=== PATIENT | female | born 1985 | race American Indian/Alaskan Native ===

== ENCOUNTER 2021-11-27 17:25 | Outpatient (CLI) | payer MEDICAID ==
[2021-11-27] MEDS ORDERED: BETAMET ACET/BETAMET NA PH 6 MG/ML INJ 5 ML MDV IM ONE (17:55)
[2021-11-27 18:45] VITALS: BP 122/68
== END 2021-11-27 19:02 | disposition home or self-care (01) ==
LOC: TRG 17:25 → LD 17:28 → TRG 19:02
PROVIDERS: ATTEND Obstetrics & Gynecology
DX: O09.522 Supervision of elderly multigravida, second trimester (principal); Z3A.25 25 weeks gestation of pregnancy
CPT/HCPCS: 59025; 96372; J0702

== ENCOUNTER 2021-11-28 17:17 | Outpatient (CLI) | payer MEDICAID ==
[2021-11-28] MEDS ORDERED: BETAMET ACET/BETAMET NA PH 6 MG/ML INJ 5 ML MDV IM ONE (19:41)
[2021-11-28 19:58] VITALS: BP 120/73
== END 2021-11-28 20:07 | disposition home or self-care (01) ==
LOC: TRG 17:17 → APU 19:29 → TRG 20:07
PROVIDERS: ATTEND Obstetrics & Gynecology
DX: O09.522 Supervision of elderly multigravida, second trimester (principal); Z3A.25 25 weeks gestation of pregnancy
CPT/HCPCS: 96372; J0702

== ENCOUNTER 2022-01-26 17:42 | Outpatient (CLI) | payer MEDICAID ==
[2022-01-26] MEDS ORDERED: LACTATED RINGERS 500 ML IV ONE (18:32)
[2022-01-26] MEDS ORDERED: ACETAMINOPHEN 325 MG TAB PO ONE (18:33)
[2022-01-26 18:55] LABS: Basophils % (Auto) 0.2 % (0.0-1.8); Eosinophils # (Auto) 0.1 K/mm3 (0.0-0.4); Eosinophils % (Auto) 1.9 % (0.0-4.3); Hematocrit 35.8 % (30.3-42.9); Hemoglobin 11.8 gm/dl (10.1-14.3); Lymphocytes # (Auto) 0.4 K/mm3 (1.2-5.4); Lymphocytes % (Auto) 5.1 % (13.4-35.0); Mean Corpuscular HGB Conc 33 % (30-34); Mean Corpuscular Volume 82 fl (79-97); Monocytes # (Auto) 0.6 K/mm3 (0.0-0.8); Monocytes % (Auto) 8.6 % (0.0-7.3); Platelet Count 202 K/mm3 (140-440); Red Blood Count 4.38 M/mm3 (3.65-5.03); Red Cell Distribution Width 13.7 % (13.2-15.2)
[2022-01-26 19:14] LABS: Bilirubin,Urine NEG (Negative); Blood,Urine NEG (Negative); Color,Urine Yellow (Yellow); Protein,Urine <15 mg/dL mg/dL (Negative); Urobilinogen,Urine < 2.0 mg/dL (<2.0)
[2022-01-26 19:23] LABS: Amphetamine Screen,Urine Negative; Benzodiazepines Screen,Urine Negative; Cannabinoid Screen,Urine Negative; Cocaine Screen,Urine Negative; Methadone Screen,Urine Negative; Opiate Screen,Urine Negative
[2022-01-26 19:24] LABS: Alanine Aminotransferase 15 units/L (7-56); Albumin 3.2 g/dL (3.9-5); Bacteria,Urine 1+ /HPF (Negative); Blood Urea Nitrogen 5 mg/dL (7-17); Calcium 9.6 mg/dL (8.4-10.2); Hemolysis Index 118; Mucus,Urine FEW /HPF; WBC,Urine < 1.0 /HPF (0.0-6.0)
[2022-01-26 19:28] LABS: BUN/Creatinine Ratio 13
[2022-01-26] MEDS ORDERED: BUTORPHANOL 2 MG/1 ML INJ IV ONE (23:48)
[2022-01-27 01:40] VITALS: BP 118/58
--- NOTE | 2022-01-27 01:58 | Ultrasound Report ---
US OB BPP wo non-stress, US OB limited INDICATION / CLINICAL INFORMATION: FWB COMPARISON: None available. TECHNIQUE: Using a transcutaneous probe, multiple grayscale, color Doppler, and spectral Doppler imag es of the uterus and fetus were captured and stored. Additional biophysical profile was performed. FINDINGS: A single cephalic fetus is demonstrated with heart rate of 142 bpm. The amniotic fluid index is within normal limits, EDITH of 8.7 cm. Anterior grade 2 placenta is present. No ultrasound evidence of abruption. BREATHING MOVEMENT = 2 GROSS BODY MOVEMENT = 2 TONE = 2 QUALITATIVE AMNIOTIC FLUID VOLUME = 2 TOTAL BIOPHYSICAL SCORE = 8/8 IMPRESSION: 1. Single living fetus. 2. Normal biophysical profile score of 8/8. Signer Name: Sergei Gannon II, MD Signed: 01/27/2022 1:54 AM Workstation Name: [id number]
== END 2022-01-27 01:57 | disposition home or self-care (01) ==
LOC: TRG 17:42 → APU 17:44 → TRG 01-27 01:57
PROVIDERS: ATTEND Obstetrics & Gynecology
DX: O62.9 Abnormality of forces of labor, unspecified (principal); Z3A.33 33 weeks gestation of pregnancy
CPT/HCPCS: 36415; 76815; 76819; 80053; 80307; 81001; 85025; J0595; J7120

== ENCOUNTER 2022-03-06 12:49 | Inpatient (IN) | payer MEDICAID ==
[2022-03-06] MEDS ORDERED: LOPERAMIDE 2 MG CAP PO PRN (14:16)
[2022-03-06] MEDS ORDERED: miSOPROStol 200 MCG TAB PR PRN (14:16)
[2022-03-06] MEDS ORDERED: OXYTOCIN 10 UNIT/1 ML INJ IM PRN (14:16)
[2022-03-06] MEDS ORDERED: LIDOCAINE (2%) 20 MG/1 ML VIAL 20 ML MDV INFILTRATI ONE (14:16)
[2022-03-06] MEDS ORDERED: METHYLERGONOVINE MALEATE 0.2 MG/ML VIAL IM PRN (14:16)
[2022-03-06] MEDS ORDERED: ACETAMINOPHEN 325 MG TAB PO PRN (14:16)
[2022-03-06] MEDS ORDERED: NalbUPHINE 10 MG/1 ML INJ IV PRN (14:16)
[2022-03-06] MEDS ORDERED: TERBUTALINE 1 MG/1 ML INJ SUB-Q PRN (14:16)
[2022-03-06] MEDS ORDERED: fentaNYL 100 MCG/2 ML INJ IV PRN (14:16)
[2022-03-06] MEDS ORDERED: BUTORPHANOL 2 MG/1 ML INJ IV PRN (14:16)
[2022-03-06] MEDS ORDERED: CARBOPROST TROMETHAMINE 250 MCG/1 ML INJ IM PRN (14:16)
[2022-03-06] MEDS ORDERED: MINERAL OIL 30 ML ORAL LIQD PO PRN (14:16)
[2022-03-06 14:52] LABS: Hematocrit 37.1 % (30.3-42.9); Hemoglobin 12.4 gm/dl (10.1-14.3); Mean Corpuscular HGB Conc 34 % (30-34); Mean Corpuscular Volume 82 fl (79-97); Platelet Count 245 K/mm3 (140-440); Red Blood Count 4.55 M/mm3 (3.65-5.03); Red Cell Distribution Width 13.5 % (13.2-15.2)
[2022-03-06] MEDS ORDERED: OXYTOCIN DRIP 30 UNITS/500 ML BAG IV SCH ×2 (15:00)
--- NOTE | 2022-03-06 17:06 | History and Physical Report ---
History of Present Illness Date of examination: 03/06/22 Date of admission: 03/06/22 14:16 Chief complaint: Here for induction of labor History of present illness: 36 Y/O presents to labor and delivery for induction of labor for obesity. care done at [facility]. Hx of deliveries x 2. Past History Past Medical History: no pertinent history Past Surgical History: no surgical history Family/Genetic History: diabetes, hypertension Social history: no significant social history - Obstetrical History Expected Date of Delivery: 03/11/22 Actual Gestation: 39 Week(s) 2 Day(s) : 5 Hx # Term Pregnancies: 1 Number of Pregnancies: 2 Number of Living Children: 3 Medications and Allergies Allergies Allergy/AdvReac Type Severity Reaction Status Date / Time No Known Allergies Allergy Verified 11/27/21 17:50 Active Meds: Active Medications Acetaminophen (Acetaminophen 325 Mg Tab) 650 mg PO Q4H PRN PRN Reason: Pain, Mild (1-3) Butorphanol Tartrate (Butorphanol 2 Mg/1 Ml Inj) 2 mg IV Q2H PRN PRN Reason: Pain , Severe (7-10) Carboprost Tromethamine (Carboprost Tromethamine 250 Mcg/1 Ml Inj) 250 mcg IM ONCE PRN PRN Reason: Uterine Bleeding Ephedrine Sulfate (Ephedrine Sulfate 50 Mg/1 Ml Inj) 10 mg IV Q2M PRN PRN Reason: Hypotension Fentanyl (Fentanyl 100 Mcg/2 Ml Inj) 100 mcg IV Q2H PRN PRN Reason: Pain,Severe (7-10) LABOR PAIN Oxytocin/Sodium Chloride (Pitocin/Ns 30 Unit/500ml) 30 units in 500 mls @ 2 mls/hr IV TITR ARLETTE; Protocol Lactated Ringer's (Lactated Ringers) 1,000 mls @ 125 mls/hr IV DIRECT ARLETTE Oxytocin/Sodium Chloride (Pitocin/Ns 30 Unit/500ml) 30 units in 500 mls @ 40 mls/hr IV TITR ARLETTE; Protocol Loperamide HCl (Loperamide 2 Mg Cap) 2 mg PO ONCE PRN PRN Reason: give with Hemabate Methylergonovine Maleate (Methylergonovine Maleate 0.2 Mg/Ml Vial) 0.2 mg IM ONCE PRN PRN Reason: Uterine Bleeding Mineral Oil (Mineral Oil 30 Ml Oral Liqd) 30 ml PO QHS PRN PRN Reason: Constipation Misoprostol (Misoprostol 200 Mcg Tab) 800 mcg AK ONCE PRN PRN Reason: Uterine Bleeding Nalbuphine HCl (Nalbuphine 10 Mg/1 Ml Inj) 10 mg IV Q2H PRN PRN Reason: Pain, Moderate (4-6) Oxytocin (Oxytocin 10 Unit/1 Ml Inj) 10 unit IM ONCE PRN PRN Reason: Uterine Bleeding Terbutaline Sulfate (Terbutaline 1 Mg/1 Ml Inj) 0.25 mg SUB-Q ONCE PRN PRN Reason: Hyperstimulation/Hypertonicity Review of Systems All systems: negative - Vital Signs Vital signs: Vital Signs Pulse BP 92 H 116/79 03/06/22 13:21 03/06/22 13:21 Temp Pulse Resp BP Pulse Ox 98.2 F 92 H 16 110/56 99 03/06/22 13:33 03/06/22 16:56 03/06/22 13:33 03/06/22 16:39 03/06/22 16:56 - Physical Exam Cardiovascular: Regular rate Lungs: Positive: Clear to auscultation Abdomen: Positive: normal appearance Genitourinary (Female): Positive: normal external genitalia Uterus: Positive: enlarged Extremities: Positive: normal Deep Tendon Reflex Grade: Normal +2 - Obstetrical FHR: category 1 Uterine Contraction Monitor Mode: External Cervical Dilatation: 3 Cervical Effacement Percentage: 50 station: -2 Uterine Contraction Pattern: Irregular Uterine Contraction Intensity: Mild Results Result Diagrams: 03/06/22 Unknown Abnormal lab results 03/06/22 Range/Units Unknown MCH 27 L (28-32) pg All other labs normal. Assessment and Plan A: Induction of labor @ 39.2 weeks for obesity P: Pitocin induction Expect
[2022-03-06] MEDS: LACTATED RINGERS 1,000 ML IV SCH ×3 (17:44→20:59)
[2022-03-06] MEDS ORDERED: BUPIVACAINE/PF (0.25%) 2.5 MG/ML 10 ML VIAL INFILTRATI ONE (19:48)
[2022-03-06] MEDS ORDERED: fentaNYL-BUPIV 2 MCG/ML-0.125% 200 MCG/100 ML BAG EPIDURAL SCH (20:27)
[2022-03-06] MEDS ORDERED: NALOXONE 0.4 MG/1 ML INJ IV PRN (20:27)
[2022-03-06] MEDS ORDERED: ePHEDrine SULFATE 50 MG/1 ML INJ IV PRN (20:27)
--- NOTE | 2022-03-06 20:30 | Anesthesia Consultation ---
Anesthesia Consult and Med Hx Date of service: 03/06/22 - Airway Anesthetic Teeth Evaluation: Good ROM Head & Neck: Adequate Mental/Hyoid Distance: Adequate Mallampati Class: Class II Intubation Access Assessment: Probably Good - Pulmonary Exam CTA: Yes - Cardiac Exam Cardiac Exam: RRR - Pre-Operative Health Status ASA Pre-Surgery Classification: ASA2 Proposed Anesthetic Plan: Epidural - Pulmonary Hx Smoking: No Hx Asthma: No Hx Respiratory Symptoms: No SOB: No COPD: No Home Oxygen Therapy: No Hx Pneumonia: No Hx Sleep Apnea: No - Cardiovascular System Hx Hypertension: No Hx Coronary Artery Disease: No Hx Heart Attack/AMI: No Hx Angina: No Hx Percutaneous Transluminal Coronary Angioplasty (PTCA): No Hx Cardia Arrhythmia: No Hx Pacemaker: No Hx Internal Defibrillator: No Hx Valvular Heart Disease: No Hx Heart Murmur: No Hx Peripheral Vascular Disease: No - Central Nervous System Hx Neuromuscular Disorder: No Hx Seizures: No CVA: No Hx Back Pain: No Hx Psychiatric Problems: No - Gastrointestinal Hx Ulcer: No Hx Gastroesophageal Reflux Disease: No - Endocrine Hx Renal Disease: No Hx End Stage Renal Disease: No Hx Cirrhosis: No Hx Liver Disease: No Hx Insulin Dependent Diabetes: No Hx Non-Insulin Dependent Diabetes: No Hx Thyroid Disease: No Hx Hypothyroidism: No Hx Hyperthyroidism: No - Hematic Hx Anemia: No Hx Sickle Cell Disease: No - Other Systems Hx Alcohol Use: No Hx Substance Use: No Hx Cancer: No Hx Obesity: No
--- NOTE | 2022-03-06 20:30 | Anesthesia Day of Surgery ---
Anesthesia Day of Surgery - Day of Surgery Patient Examined: Yes Patient H&P Reviewed: Yes Patient is NPO: Yes Beta Blockers: No Cardiac Clearance: No Pulmonary Clearance: No Jose's Test: N/A
--- NOTE | 2022-03-06 20:31 | Progress Note ---
Labor Epidural - Labor Epidural Start Time: 19:55 Stop Time: 20:00 Performed by:: RISSA AMBROSIO Procedure: Epidural Requested for Labor Pain. H&P and PT Chart reviewed and consent obtained. Time out performed and the procedure was explained, all questions answered. Patient was placed in a sitting position with monitors applied. The PTs back was prepped and draped in usual sterile fashion. The Skin was localized with 3 mL of 1% lidocaine at L3-L4. A 17-gauge Touhy epidural needle was advanced to PHILIP with saline at 7 cm and no blood/CSF was noted via epidural needle. Epidural catheter was advanced to 12 cm. There was negative aspiration for blood and CSF in the catheter and negative response to a test dose of 3 ml 1.5% lidocaine w/ Epi and a sterile dressing was applied Patient tolerated the procedure well and there were no immediate complications noted.
[2022-03-06] MEDS: ePHEDrine SULFATE 50 MG/1 ML INJ IV PRN ×2 (21:15→21:30)
--- NOTE | 2022-03-06 22:17 | Procedure Note ---
OB Delivery Note - Delivery Date of Delivery: 03/06/22 Surgeon: TAMIE SMILEY Estimated blood loss: 100cc - Vaginal Delivery presentation: vertex Delivery position: OA Intrapartum events: none Delivery induction: oxytocin Delivery monitor: external FHT, external uterine Route of delivery: Delivery placenta: spontaneous Delivery cord: 3 umbilical vessels Episiotomy: none Delivery laceration: none Anesthesia: epidural Delivery comments: of a viable female 7#7oz on 03/06/2022 @ 2202 over intact perineum. Placenta delivered 3VCI. 8/9. QBL 100cc. - A at 1 minute: 8 at 5 minutes: 9 Infant Gender: Female (7# 7oz)
[2022-03-06] MEDS ORDERED: LANOLIN/ZINC/DIMETHICONE (LANSINOH) 7 GM TP PRN (22:18)
[2022-03-06] MEDS ORDERED: WITCH HAZEL/ GLYCERIN PAD TP PRN (22:18)
[2022-03-06] MEDS ORDERED: diphenhydrAMINE 25 MG CAP PO PRN (22:18)
--- NOTE | 2022-03-07 00:39 | Post Anesthesia Evaluation ---
- Post Anesthesia Evaluation Patient Participated: Yes Airway Patent: Yes Stable Respiratory Function: Yes Nausea/Vomiting: No Temp > 96.8F: Yes Pain Manageable: Yes Adequeate Hydration: Yes Anesthesia Complications: No Block Receding Appropriately: Yes Patient on Ventilator: No
[2022-03-07] MEDS: oxyCODONE /ACETAMINOPHEN 5-325MG TAB PO PRN ×3 (02:06→17:37)
[2022-03-07] MEDS: ACETAMINOPHEN 325 MG TAB PO PRN (06:47)
--- NOTE | 2022-03-07 08:19 | Progress Note ---
Assessment and Plan A: PPD # 1 - stable P: Discharge home in am Discharge instructions given Subjective - Subjective Date of service: 03/07/22 Principal diagnosis: PPD # 1 - stable Interval history: 36 Y/O presents to labor and delivery for induction of labor for obesity. care done at [facility]. Hx of deliveries x 2. Patient reports: appetite normal [place]: doing well Objective - Vital Signs Latest vital signs: Vital Signs Temp Pulse Resp BP BP Pulse Ox Pulse Ox 03/07/22 06:47 16 03/07/22 02:46 98 03/07/22 02:06 18 03/07/22 01:50 98.1 F 83 16 127/78 97 03/07/22 01:10 98.2 F 03/07/22 00:20 96 H 97 03/07/22 00:15 85 97 03/07/22 00:10 81 128/75 98 03/07/22 00:05 104 H 99 03/07/22 00:00 90 98 03/06/22 23:55 95 H 117/58 99 03/06/22 23:50 98 H 98 03/06/22 23:45 98 H 99 03/06/22 23:40 94 H 136/61 99 03/06/22 23:35 91 H 98 03/06/22 23:30 99 H 98 03/06/22 23:26 92 H 133/63 03/06/22 23:25 96 H 99 03/06/22 23:20 103 H 99 03/06/22 23:15 94 H 99 03/06/22 23:10 91 H 120/64 93 03/06/22 23:05 112 H 97 03/06/22 23:00 93 H 100 03/06/22 22:55 93 H 115/58 98 03/06/22 22:50 88 99 03/06/22 22:48 98.3 F 03/06/22 22:45 94 H 98 03/06/22 22:40 97 H 128/63 98 03/06/22 22:35 103 H 98 03/06/22 22:30 101 H 98 03/06/22 22:25 101 H 128/64 100 03/06/22 22:20 113 H 99 03/06/22 22:16 116 H 134/57 03/06/22 22:15 117 H 100 03/06/22 22:10 120 H 116/55 100 03/06/22 22:05 105 H 100 03/06/22 22:00 115 H 100 03/06/22 21:55 117 H 113/55 100 03/06/22 21:50 107 H 100 03/06/22 21:45 109 H 100 03/06/22 21:40 104 H 111/57 100 03/06/22 21:35 93 H 100 03/06/22 21:30 101 H 100 03/06/22 21:25 99 H 117/58 100 03/06/22 21:20 100 H 100 03/06/22 21:15 101 H 100 03/06/22 21:11 96 H 118/58 03/06/22 21:10 98 H 100 03/06/22 21:05 101 H 100 03/06/22 21:00 110 H 99 03/06/22 20:56 106 H 113/53 03/06/22 20:55 102 H 100 03/06/22 20:50 102 H 100 03/06/22 20:46 100 03/06/22 20:45 103 H 100 03/06/22 20:40 97 H 121/54 100 03/06/22 20:35 97 H 100 03/06/22 20:30 98 H 100 03/06/22 20:25 84 97 03/06/22 20:24 85 82/47 03/06/22 20:22 94 H 81/44 03/06/22 20:20 82 78/44 99 03/06/22 20:19 76 72/36 03/06/22 20:17 91 H 86/48 03/06/22 20:15 90 98 03/06/22 20:14 82 76/35 03/06/22 20:13 93 H 78/37 03/06/22 20:11 95 H 97/51 03/06/22 20:10 94 H 98 03/06/22 20:09 95 H 86/45 03/06/22 20:07 99 H 118/57 03/06/22 20:05 112 H 98 03/06/22 20:04 93 H 134/67 03/06/22 20:02 100 H 147/74 03/06/22 20:00 94 H 150/72 99 03/06/22 19:58 90 154/71 03/06/22 19:57 94 H 94 03/06/22 19:56 106 H 139/83 03/06/22 19:55 97 H 96 03/06/22 19:54 96 H 129/85 03/06/22 19:50 110 H 99 03/06/22 19:45 93 H 98 03/06/22 19:40 98 H 99 03/06/22 19:35 96 H 99 03/06/22 19:30 108 H 99 03/06/22 19:25 104 H 100 03/06/22 19:20 101 H 99 03/06/22 19:15 96 H 100 03/06/22 19:10 102 H 121/73 99 03/06/22 19:05 105 H 99 03/06/22 19:00 100 H 100 03/06/22 18:55 101 H 99 03/06/22 18:50 103 H 99 03/06/22 18:45 101 H 99 03/06/22 18:40 96 H 98 03/06/22 18:39 88 109/60 03/06/22 18:35 95 H 98 03/06/22 18:30 92 H 98 03/06/22 18:25 98 H 98 03/06/22 18:20 92 H 97 03/06/22 18:15 89 97 03/06/22 18:10 85 97 03/06/22 18:09 90 118/64 03/06/22 18:05 89 98 03/06/22 18:00 89 98 03/06/22 17:55 102 H 98 03/06/22 17:50 102 H 98 03/06/22 17:45 100 H 98 03/06/22 17:40 98 H 98 03/06/22 17:39 88 106/55 03/06/22 17:35 97 H 97 03/06/22 17:30 88 97 03/06/22 17:25 96 H 98 03/06/22 17:20 99 H 99 03/06/22 17:11 96 H 99 03/06/22 17:09 92 H 93/51 03/06/22 17:06 96 H 98 03/06/22 17:01 99 H 98 03/06/22 16:56 92 H 99 03/06/22 16:51 96 H 99 03/06/22 16:46 104 H 99 07/22/22 16:41 89 98 03/06/22 16:39 88 110/56 03/06/22 16:36 90 99 03/06/22 16:31 89 98 03/06/22 16:26 99 H 99 03/06/22 16:21 97 H 99 03/06/22 16:16 88 99 03/06/22 16:11 91 H 99 03/06/22 16:09 90 103/53 03/06/22 16:06 108 H 99 03/06/22 16:01 91 H 97 03/06/22 15:56 91 H 98 03/06/22 15:51 96 H 99 03/06/22 15:43 90 98 03/06/22 15:39 88 100/59 03/06/22 15:38 92 H 98 03/06/22 15:33 92 H 98 03/06/22 15:28 91 H 97 03/06/22 15:23 96 H 99 03/06/22 15:18 94 H 97 03/06/22 15:13 82 97 03/06/22 15:08 83 96 03/06/22 15:03 87 97 03/06/22 14:58 88 97 03/06/22 14:53 94 H 98 03/06/22 14:48 87 98 03/06/22 14:43 84 98 03/06/22 14:38 88 99 03/06/22 14:33 89 99 03/06/22 14:28 90 99 03/06/22 14:23 87 98 03/06/22 14:18 86 97 03/06/22 14:13 90 98 03/06/22 14:08 86 98 03/06/22 14:03 91 H 98 03/06/22 13:58 90 98 03/06/22 13:53 91 H 99 03/06/22 13:48 94 H 98 03/06/22 13:43 90 98 03/06/22 13:38 95 H 98 03/06/22 13:33 98.2 F 99 H 16 96 03/06/22 13:28 87 98 03/06/22 13:23 92 H 98 03/06/22 13:21 92 H 116/79 Intake and Output 03/06/22 03/07/22 03/07/22 22:59 06:59 14:59 Intake Total 406.250 Output Total 200 Balance 206.250 Intake: IV 406.250 Lactated Ringers 1,000 ml 406.250 @ 125 mls/hr IV DIRECT ARLETTE Rx#:[id number] Output: Urine 200 Indwelling 200 Other: Estimated Blood Loss 100 - Exam Breasts: Present: deferred Cardiovascular: Present: Regular rate Lungs: Present: Clear to auscultation Abdomen: Present: soft Vulva: both: normal Uterus: Present: fundal height below umbilicus Deep Tendon Reflex Grade: Normal +2 - Labs Labs: Abnormal lab results 03/06/22 Range/Units Unknown MCH 27 L (28-32) pg
--- NOTE | 2022-03-07 08:21 | Discharge Summary ---
Providers - Providers Date of Admission: 03/06/22 14:16 Date of discharge: 03/08/22 Attending physician: LIZZETTE RAYGOZA Primary care physician: LIZZETTE RAYGOZA Hospitalization Reason for admission: induction of labor Delivery: Episiotomy: none Laceration: none Discharge diagnosis: IUP at term delivered [place] baby: female Condition at discharge: Good Disposition: 01 HOME / SELF CARE / HOMELESS Plan - Provider Discharge Summary Activity: routine, no sex for 6 weeks, no strenuous exercise Diet: routine Instructions: routine Additional instructions: [] Smoking cessation referral if applicable(refer to patient education folder for contact #) [] Refer to [facility]'s [facility] Booklet Call your doctor immediately for: * Fever > 100.5 * Heavy vaginal bleeding ( >1 pad per hour) * Severe persistent headache * Shortness of breath * Reddened, hot, painful area to leg or breast * Drainage or odor from incision. * Keep incision clean and dry at all times and follow doctor's instructions regarding bathing/showering - Follow up plan Follow up: LIZZETTE RAYGOZA MD [Primary Care Provider] - 6 Weeks
[2022-03-07 12:39] LABS: Hematocrit 33.8 % (30.3-42.9); Hemoglobin 11.4 gm/dl (10.1-14.3)
[2022-03-08] MEDS: ACETAMINOPHEN 325 MG TAB PO PRN (03:58)
[2022-03-08] MEDS: oxyCODONE /ACETAMINOPHEN 5-325MG TAB PO PRN (11:55)
[2022-03-08 11:56] VITALS: BP 115/74
== END 2022-03-08 13:07 | disposition home or self-care (01) | DRG 775 ==
LOC: TRG 12:49 → LD 12:50 → TRG 14:47 → OB 03-07 01:40
PROVIDERS: ADMIT Obstetrics & Gynecology; ATTEND Obstetrics & Gynecology
PROC: 10E0XZZ Delivery of Products of Conception, External Approach (ICD-10-PCS; principal; 2022-03-06)
PROC: 3E033VJ Introduction of Other Hormone into Peripheral Vein, Percutaneous Approach (ICD-10-PCS; 2022-03-06)
PROC: 3E0R3BZ Introduction of Anesthetic Agent into Spinal Canal, Percutaneous Approach (ICD-10-PCS; 2022-03-06)
PROC: 00HU33Z Insertion of Infusion Device into Spinal Canal, Percutaneous Approach (ICD-10-PCS; 2022-03-06)
DX: O99.214 Obesity complicating childbirth (principal); Z3A.39 39 weeks gestation of pregnancy; Z20.822 Contact with and (suspected) exposure to COVID-19; Z37.0 Single live birth; Z83.3 Family history of diabetes mellitus; Z82.49 Family history of ischemic heart disease and other diseases of the circulatory system
CPT/HCPCS: 36415; 85014; 85018; 85027; 86592; 86850; 86900; 86901; G0378; J3490; J2590; J7120; U0003